=== PATIENT | male | born 1955 | race Caucasian/White ===

== ENCOUNTER → 2022-04-22 07:50 | Outpatient (CLI) | payer MEDICARE, SELFPAY ==
--- NOTE | 2022-04-22 | DI.ECHO.S_ITS ---
[facility] +---------+ : : [address] : : : : [phone] : : : : Phone: [phone]+ Echocardiogram Report + + :Name: JAY NATH Study Date: 04/22/2022 Height: 73 in : :[facility] ReadingLocation: Weight: 195 lb : : Gender: Male BSA: 2.1 m2 : :: 1955 Age: 66 yrs BP: 142/78 mmHg: :Reason For Study: Murmur : :Ordering Physician: DOMINIQUE, : :NYASIA Portillo Performed By: Jase Randall : :Referring: NYASIA FOX : + + Interpretation Summary The left ventricle is normal in size and wall thickness. Left ventricular systolic function is normal. The ejection fraction is estimated to be 55-60%. There are no focal wall motion abnormalities. Diastolic parameters suggest probable normal left ventricular diastolic function and normal filling pressures. The right ventricle is normal in size and function. The right ventricular systolic pressure is estimated to be at least 29 mmHg based on an estimated right atrial pressure of 3 mm Hg. Both atria are normal in size. There is no significant valvular heart disease. The ascending aorta is mildly enlarged. Procedure: A two-dimensional transthoracic echocardiogram with color flow and Doppler was performed. The study quality was technically adequate. There is no prior echocardiogram noted for this patient. Left Ventricle: The left ventricle is normal in size and wall thickness. Left ventricular systolic function is normal. The ejection fraction is estimated to be 55-60%. There are no focal wall motion abnormalities. Diastolic parameters suggest probable normal left ventricular diastolic function and normal filling pressures. Right Ventricle: The right ventricle is normal in size and function. Atria: Both atria are normal in size. The interatrial septum grossly appears intact with no obvious evidence for an atrial septal defect. Mitral Valve: The mitral valve is normal in structure and function. There is trace mitral regurgitation. Aortic Valve: The aortic valve is normal in structure and function. No aortic regurgitation is present. Tricuspid Valve: The tricuspid valve is normal in structure and function. There is mild tricuspid regurgitation. The right ventricular systolic pressure is estimated to be at least 29 mmHg based on an estimated right atrial pressure of 3 mm Hg. Pulmonic Valve: The pulmonic valve is normal in structure and function. There is a trace or physiologic amount of pulmonic regurgitation. There is no significant valvular heart disease. Great Vessels: The aortic root is normal size. The ascending aorta is mildly enlarged. The IVC is of normal diameter and collapses greater than 50% with a sniff. This suggests a low right atrial pressure of 3 mm Hg. Pericardium/ Pleura There is no pericardial effusion. There is no pleural effusion. MMode/2D Measurements & Calculations LVIDd: 5.5 cm LVOT diam: 2.4 cm LVIDs: 3.7 cm Ao root diam: 3.5 cm FS: 32.7 % asc Aorta Diam: 3.7 cm IVSd: 1.0 cm LVPWd: 1.0 cm LV meraz. diameter/BSA (cm/m^2): 2.6 LV sys. diameter/BSA (cm/m^2): 1.7 LA dimension: 3.5 cm RA long axis: 5.1 cm LA A2 area: 20.3 cm2 LA A4 area: 20.5 cm2 LA length (vol): 5.7 cm LA vol: 61.8 ml LA vol index: 29.0 ml/m2 TAPSE_phl: 3.1 cm Doppler Measurements & Calculations Ao V2 max: 156.0 cm/sec LVOT Max Hernan: 140.0 cm/sec Ao V2 mean: 110.0 cm/sec LV V1 max P.8 mmHg Ao max P.0 mmHg LV V1 VTI: 31.9 cm Ao mean P.0 mmHg LUIS MIGUEL(I,D): 4.2 cm2 Ao V2 VTI: 34.7 cm LUIS MIGUEL(V,D): 4.1 cm2 sev ratio: 0.92 LUIS MIGUEL indexed to BSA (cm^2/m^2): 2.0 MV E max hernan: 75.0 cm/sec TR max hernan: 256.0 cm/sec MV A max hernan: 64.3 cm/sec TR max P.2 mmHg MV E/A: 1.2 Med Peak E' Hernan: 8.4 cm/sec E/E' med: 8.9 Lat Peak E' Hernan: 12.0 cm/sec E/E' lat: 6.3 E/e' average: 7.6 MV dec time: 0.26 sec SV(LVOT): 144.3 ml AV VR_phl: 0.90 LUIS MIGUEL(VTI)/BSA_phl: 1.9 MV P1/2t-pr_phl: 76.0 msec Reading Physician:07:07 PM
== END ==
PROVIDERS: Referring Provider Nurse Practitioner Family; Visit Provider Nurse Practitioner Family
DX: I07.1 Rheumatic tricuspid insufficiency (principal); I77.89 Other specified disorders of arteries and arterioles; R01.1 Cardiac murmur, unspecified
CPT/HCPCS: 93306

== ENCOUNTER → 2022-10-29 07:43 | Outpatient (CLI) | payer MEDICARE, SELFPAY ==
--- NOTE | 2022-10-29 | DI.ECHO.S_ITS ---
[facility]---------+ [facility] +---------+ : : [address] : : : : [phone] : : : : Phone: [phone] +[phone]+ Echocardiogram Report + + :Name: JAY NATH Study Date: 10/29/2022 Height: 71.5 in: :[facility] ReadingLocation: Weight: 205 lb : : Gender: Male BSA: 2.1 m2 : :: 1955 Age: 66 yrs BP: 108/62 mmHg: :Reason For Study: BRADYCARDIA : :Ordering Physician: JENNY, : :LOUIS Performed By: Celestina Garcia : :Referring: LOUIS ALVARADO : + + Interpretation Summary The ejection fraction is estimated to be 55-60%. Grade II diastolic dysfunction The right ventricle is normal in size and function. The right ventricular systolic pressure is estimated to be at least 41 mmHg based on an estimated right atrial pressure of 8 mm Hg. No significant valvular abnormality. No significant change from last study in 03/2022 Procedure: A two-dimensional transthoracic echocardiogram with color flow and Doppler was performed. The study quality was technically adequate. Comparison is made with the echocardiogram of 04/22/2022. The patient was in sinus bradycardia with heart rates between 51-62 bpm during the exam. Left Ventricle: The left ventricle is normal in size and wall thickness. The ejection fraction is estimated to be 55-60%. Grade II diastolic dysfunction. Right Ventricle: The right ventricle is normal in size and function. Atria: The left atrium is severely dilated. The right atrium is moderately dilated. There is no Doppler evidence for an interatrial shunt. Mitral Valve: The mitral valve is normal in structure and function. There is mild mitral regurgitation. Aortic Valve: The aortic valve is trileaflet. The aortic valve opens well. There is no aortic valve stenosis. No aortic regurgitation is present. Tricuspid Valve: The tricuspid valve is normal in structure and function. There is mild tricuspid regurgitation. The right ventricular systolic pressure is estimated to be at least 41 mmHg based on an estimated right atrial pressure of 8 mm Hg. Pulmonic Valve: The pulmonic valve leaflets are thin and pliable; valve motion is normal. There is mild pulmonic regurgitation. Great Vessels: The aortic root is normal size. The dimensions of the ascending aorta are normal. The IVC is of normal diameter and collapses less than 50% with a sniff. This suggests a right atrial pressure of 8 mm Hg. Pericardium/ Pleura There is no pericardial effusion. There is no pleural effusion. MMode/2D Measurements & Calculations LVIDd: 5.5 cm LVOT diam: 2.2 cm LVIDs: 3.9 cm Ao root diam: 3.5 cm FS: 29.6 % asc Aorta Diam: 3.8 cm IVSd: 0.92 cm Ao Arch Diam (Prox Trans): 3.3 cm LVPWd: 0.79 cm LV meraz. diameter/BSA (cm/m^2): 2.6 LV sys. diameter/BSA (cm/m^2): 1.8 LA A2 area: 31.7 cm2 RA long axis: 6.6 cm LA A4 area: 30.7 cm2 RA area: 26.8 cm2 LA length (vol): 6.6 cm RA vol: 92.9 ml LA vol: 125.1 ml RA : 43.4 ml/m2 LA vol index: 58.4 ml/m2 IVC diam: 2.0 cm RVD1 (basal): 3.5 cm RVD2 (mid): 3.0 cm TAPSE: 2.8 cm Doppler Measurements & Calculations Ao V2 max: 152.1 cm/sec LVOT Max Hernan: 112.6 cm/sec Ao V2 mean: 106.1 cm/sec LV V1 max P.1 mmHg Ao max P.3 mmHg LV V1 VTI: 25.2 cm Ao mean P.0 mmHg LUIS MIGUEL(I,D): 2.9 cm2 Ao V2 VTI: 34.3 cm LUIS MIGUEL(V,D): 2.9 cm2 sev ratio: 0.73 LUIS MIGUEL indexed to BSA (cm^2/m^2): 1.4 MV E max hernan: 85.5 cm/sec TR max hernan: 286.4 cm/sec MV A max hernan: 78.7 cm/sec TR max P.8 mmHg MV E/A: 1.1 PA V2 max: 106.0 cm/sec Med Peak E' Hernan: 8.8 cm/sec PA V2 mean: 72.4 cm/sec E/E' med: 9.7 PA mean P.4 mmHg Lat Peak E' Hernan: 11.1 cm/sec PA pr(Accel): 24.2 mmHg E/E' lat: 7.7 E/e' average: 8.7 MV dec time: 0.16 sec SVLVOT): 100.0 ml Reading Physician:GYPSY
== END ==
PROVIDERS: Referring Provider Nurse Practitioner; Visit Provider Nurse Practitioner
DX: C34.91 Malignant neoplasm of unspecified part of right bronchus or lung (principal); I08.1 Rheumatic disorders of both mitral and tricuspid valves; R00.1 Bradycardia, unspecified
CPT/HCPCS: 93306